=== PATIENT | female | born 1970 | race African-American/Black ===

== ENCOUNTER 2023-10-03 08:25 | Emergency (ER) | payer OTHER ==
[2023-10-03 08:33] VITALS: BP 103/71; PULSE 67; RESP 18; TEMP 98.1; BMI 29.9
[2023-10-03] MEDS ORDERED: ACETAMINOPHEN 1000 MG/100 ML BAG IVPB ONE (08:41)
[2023-10-03] MEDS ORDERED: ACETAMINOPHEN INJECTION 100 ML IVPB ONE (08:54)
[2023-10-03] MEDS ORDERED: ACETAMINOPHEN 500 MG TABLET (FP) ONE (08:55)
[2023-10-03] MEDS: ACETAMINOPHEN 500 MG TABLET (FP) PO ONE (09:07)
[2023-10-03 09:17] LABS: BASO % 0.4 % (0-2.0); EOS % 2.6 % (0-4.5); HEMATOCRIT 35.3 % (32.4-45.2); HEMOGLOBIN 11.2 GM/dL (10.7-15.3); MCH 26.9 pg (25.7-33.7); MCHC 31.7 g/dl (32.0-36.0); MEAN CELL VOLUME 84.8 fl (80-96); MEAN PLT VOLUME 7.8 fl (7.5-11.1); MONO % 7.4 % (3.8-10.2); NEUT % 45.6 % (42.8-82.8); PLATELET COUNT 241 10^3/uL (134-434); RBC 4.16 M/mm3 (3.60-5.2); RDW 14.6 % (11.6-15.6); WHITE BLOOD COUNT 5.9 K/mm3 (4.0-10.0)
[2023-10-03 09:43] LABS: POTASSIUM 4.4 mmol/L (3.5-5.1)
[2023-10-03 09:45] LABS: ALBUMIN 3.2 g/dl (3.4-5.0); BLOOD UREA NITROGEN 10.4 mg/dL (7-18); CALCIUM 8.9 mg/dL (8.5-10.1)
[2023-10-03 09:47] LABS: CREATININE 0.7 mg/dL (0.55-1.3)
[2023-10-03 09:50] LABS: BILIRUBIN,TOTAL 0.5 mg/dL (0.2-1); TOT PROT 7.2 g/dl (6.4-8.2)
== END 2023-10-03 11:25 | disposition home or self-care (01) ==
LOC: JERFT 08:25
DX: M25.572 Pain in left ankle and joints of left foot (principal); M79.672 Pain in left foot; R22.42 Localized swelling, mass and lump, left lower limb; I80.9 Phlebitis and thrombophlebitis of unspecified site
CPT/HCPCS: 36415; 73590-TC-LT-FY; 80053; 83605; 85025; 85651; 86140; 93005; 93010; 93971-TC; 99285-25